=== PATIENT | female | born 1995 | race Caucasian/White ===

== ENCOUNTER 2017-04-15 22:01 | Emergency (ER) | payer OTHER ==
[~2017-04-15] VITALS: Ht 162.6 cm; Wt 59.0 kg
[~2017-04-15 22:01] MED LIST: ADDERALL20 MG PO; HYDROCODON-ACE1 EAC7 PO; KEFLEX500 MG PO; LEXAPRO10 MG PO; NORCO 5/3251 TABLET PO; TORADOL10 MG PO; VENTOLIN HFA18 GM IH
[2017-04-15 22:50] LABS: CHLORIDE 104 mEq/L (99-109); POTASSIUM 3.6 mEq/L (3.7-5.4); SODIUM 142 mEq/L (136-147)
[2017-04-15 22:52] LABS: GLUCOSE 112 mg/dL (70-99)
[2017-04-15 22:54] LABS: ANION GAP 11 MEQ/L (2-14)
[2017-04-15 22:56] LABS: GFR ESTIMATE (CALCULATED) > 59 mL/min/
[2017-04-15 22:57] LABS: UREA NITROGEN (BUN) 11 mg/dL (9-23)
[2017-04-15 23:01] LABS: TROP-I INTERPRETATION NEGATIVE; TROPONIN-I < 0.01 ng/mL (0.0-0.30)
[2017-04-15 23:06] LABS: HEMATOCRIT 39.8 % (36.0-46.0); MCH 33.7 PG (29.0-34.0); MCHC 34.9 G/DL (30.0-36.0); MCV 96.4 FL (83-99); PLATELET COUNT 216 K/uL (156-360); RBC DIS.WIDTH-CV 11.2 % (11.8-14.6); RBC DIS.WIDTH-SD 39.7 % (39-53); RED BLOOD COUNT 4.13 M/uL (3.80-5.20); WHITE BLOOD COUNT 10.6 K/uL (4.1-10.2)
[2017-04-16 00:16] LABS: QUANTITATIVE HCG < 4.0 MIU/ML
[2017-04-16] MEDS ORDERED: ZOFRAN ODT8 MG PO (01:33)
[2017-04-16 01:41] VITALS: BP 153/84
== END 2017-04-16 01:42 | disposition home or self-care (01) ==
LOC: EME 22:01
DX: R11.2 Nausea with vomiting, unspecified (principal); R07.9 Chest pain, unspecified
CPT/HCPCS: 71020; 76856; 80048; 84484; 84702; 85027; 93005; 99281; 99284; Q0169

== ENCOUNTER 2017-05-10 11:31 | Emergency (ER) | payer OTHER ==
[~2017-05-10] VITALS: Ht 160 cm; Wt 63.2 kg
[~2017-05-10 11:31] MED LIST changes: +ZOFRAN ODT8 MG PO
[2017-05-10 12:38] LABS: ADD MIUA? YES; BILIRUBIN NEGATIVE; BLOOD NEGATIVE; COLOR YELLOW ((YELLOW)); GLUCOSE (STRIP) NEGATIVE; KETONES NEGATIVE; LEUKOCYTES NEGATIVE; NITRITE POSITIVE; PROTEIN (STRIP) NEGATIVE; SPECIFIC GRAVITY 1.003 (1.000-1.030); UROBILINOGEN 0.2 MG/DL (0.2-1.0)
[2017-05-10 12:40] LABS: INTERNAL CONTROL VALID? YES
[2017-05-10 12:55] LABS: BACTERIA RARE /HPF; EPITHELIAL CELLS RARE /HPF; MUCUS NONE SEEN /LPF; RED BLOOD CELLS 0-5 /HPF (0-5); UCUL ADDED? NO; WHITE BLOOD CELLS NONE SEEN /HPF (0-5)
[2017-05-10 13:56] LABS: HEMATOCRIT 43.1 % (36.0-46.0); MCH 33.3 PG (29.0-34.0); MCV 94.9 FL (83-99); MEAN PLAT.VOLUME 10.6 uM^3 (9.5-12.4); PLATELET COUNT 177 K/uL (156-360); RBC DIS.WIDTH-CV 11.1 % (11.8-14.6); RBC DIS.WIDTH-SD 38.9 % (39-53); RED BLOOD COUNT 4.54 M/uL (3.80-5.20); WHITE BLOOD COUNT 6.1 K/uL (4.1-10.2)
[2017-05-10 14:05] LABS: CHLORIDE 105 mEq/L (99-109); POTASSIUM 4.1 mEq/L (3.7-5.4); SODIUM 140 mEq/L (136-147)
[2017-05-10 14:08] LABS: GLUCOSE 84 mg/dL (70-99)
[2017-05-10 14:09] LABS: ANION GAP 13 MEQ/L (2-14); TOTAL BILIRUBIN 0.7 mg/dL (0.0-1.0)
[2017-05-10 14:11] LABS: ALKALINE PHOSPHATASE 60 IU/L (3-129); GFR ESTIMATE (CALCULATED) > 59 mL/min/
[2017-05-10 14:12] LABS: UREA NITROGEN (BUN) 7 mg/dL (9-23)
[2017-05-10 14:20] LABS: QUANTITATIVE HCG < 4.0 MIU/ML
[2017-05-10] MEDS ORDERED: ZOFRAN ODT4 MG PO (18:39)
[2017-05-10] MEDS ORDERED: TORADOL10 MG PO (18:39)
[2017-05-10 18:54] VITALS: BP 119/74
== END 2017-05-10 19:06 | disposition home or self-care (01) ==
LOC: EME 11:31
PROVIDERS: Nurse Practitioner Family
DX: N39.0 Urinary tract infection, site not specified (principal); F41.9 Anxiety disorder, unspecified; Z91.040 Latex allergy status; Z88.6 Allergy status to analgesic agent
CPT/HCPCS: 71020; 74177; 80053; 81003; 84702; 84703; 85027; 99281; 99284; J1885; J2405; J7030

== ENCOUNTER 2017-09-19 19:32 | Emergency (ER) | payer OTHER ==
[~2017-09-19] VITALS: Ht 162.6 cm; Wt 65.1 kg
[~2017-09-19 19:32] MED LIST changes: +ZOFRAN ODT4 MG PO
[2017-09-19 20:31] LABS: HEMATOCRIT 37.5 % (36.0-46.0); MCH 33.7 PG (29.0-34.0); MCHC 36.5 G/DL (30.0-36.0); MCV 92.4 FL (83-99); MEAN PLAT.VOLUME 10.5 uM^3 (9.5-12.4); PLATELET COUNT 197 K/uL (156-360); RBC DIS.WIDTH-CV 11.5 % (11.8-14.6); RED BLOOD COUNT 4.06 M/uL (3.80-5.20); WHITE BLOOD COUNT 10.1 K/uL (4.1-10.2)
[2017-09-19 20:44] LABS: CHLORIDE 105 mEq/L (99-109); POTASSIUM 3.6 mEq/L (3.7-5.4); SODIUM 137 mEq/L (136-147)
[2017-09-19 20:45] LABS: GLUCOSE 78 mg/dL (70-99)
[2017-09-19 20:47] LABS: ANION GAP 10 MEQ/L (2-14)
[2017-09-19 20:49] LABS: GFR ESTIMATE (CALCULATED) > 59 mL/min/
[2017-09-19 20:50] LABS: UREA NITROGEN (BUN) 8 mg/dL (9-23)
[2017-09-19 20:55] LABS: TROP-I INTERPRETATION NEGATIVE; TROPONIN-I < 0.01 ng/mL (0.0-0.30)
[2017-09-19 21:25] LABS: ADD MIUA? YES; BILIRUBIN NEGATIVE; BLOOD NEGATIVE; COLOR YELLOW ((YELLOW)); GLUCOSE (STRIP) NEGATIVE; KETONES 20; LEUKOCYTES NEGATIVE; NITRITE NEGATIVE; PROTEIN (STRIP) NEGATIVE; SPECIFIC GRAVITY 1.012 (1.000-1.030); UROBILINOGEN 0.2 MG/DL (0.2-1.0)
[2017-09-19 21:52] LABS: EPITHELIAL CELLS RARE /HPF; MUCUS NONE SEEN /LPF; RED BLOOD CELLS 0-5 /HPF (0-5); WHITE BLOOD CELLS 0-5 /HPF (0-5)
[2017-09-19 21:53] LABS: BACTERIA 1+ /HPF; CASTS NONE SEEN /LPF; CRYSTALS NONE SEEN
[2017-09-19] MEDS ORDERED: ANTIVERT25 MG PO (22:28)
[2017-09-19] MEDS ORDERED: KEFLEX500 MG PO (22:33)
[2017-09-19 23:00] VITALS: BP 139/82
== END 2017-09-19 23:00 | disposition home or self-care (01) ==
LOC: EME 19:32
PROVIDERS: Physician Assistant
DX: O99.412 Diseases of the circulatory system complicating pregnancy, second trimester (principal); R00.2 Palpitations; R42 Dizziness and giddiness; O23.42 Unspecified infection of urinary tract in pregnancy, second trimester; O99.282 Endocrine, nutritional and metabolic diseases complicating pregnancy, second trimester; E86.0 Dehydration; F32.9 Major depressive disorder, single episode, unspecified; F41.9 Anxiety disorder, unspecified; M08.00 Unspecified juvenile rheumatoid arthritis of unspecified site; Z3A.17 17 weeks gestation of pregnancy; Z91.040 Latex allergy status; Z88.5 Allergy status to narcotic agent; Z88.6 Allergy status to analgesic agent; Z88.8 Allergy status to other drugs, medicaments and biological substances
CPT/HCPCS: 80048; 81003; 84443; 84484; 85027; 87086; 93005; 93970; 99281; 99284

== ENCOUNTER 2017-11-06 17:25 | Outpatient (CLI) | payer OTHER ==
[~2017-11-06] VITALS: Ht 160 cm; Wt 69.5 kg
[~2017-11-06 17:25] MED LIST changes: +ANTIVERT25 MG PO
[2017-11-06 17:40] VITALS: BP 123/79
[2017-11-06] MEDS ORDERED: ZOLOFT50 MG PO (17:51)
[2017-11-06] MEDS ORDERED: EXPECTA PRENAT1 EACH PO (17:51)
[2017-11-06 20:41] VITALS: BP 131/75
[2017-11-06 21:35] VITALS: BP 131/74
== END 2017-11-06 21:45 | disposition home or self-care (01) ==
LOC: LDRP-OP 17:25 → 2WEST 17:26
DX: O99.89 Other specified diseases and conditions complicating pregnancy, childbirth and the puerperium (principal); R10.9 Unspecified abdominal pain; V89.2XXA Person injured in unspecified motor-vehicle accident, traffic, initial encounter; Z3A.24 24 weeks gestation of pregnancy
CPT/HCPCS: 59025; G0378

== ENCOUNTER 2018-01-09 11:11 | Outpatient (CLI) | payer OTHER ==
[~2018-01-09 11:11] MED LIST changes: +EXPECTA PRENAT1 EACH PO; +ZOLOFT50 MG PO
[2018-01-09 11:56] VITALS: BP 118/64
[2018-01-09 16:16] LABS: CANDIDA DNA PROBE NEGATIVE; GARDNERELLA DNA PROBE NEGATIVE; TRICHOMONAS DNA PROBE NEGATIVE
[2018-01-10 12:43] LABS: SOURCE SWAB
== END 2018-01-09 13:58 | disposition home or self-care (01) ==
LOC: LDRP-OP 11:11 → 2WEST 11:12 → LDRP-OP 03-29 23:56
PROVIDERS: Obstetrics & Gynecology
DX: O26.853 Spotting complicating pregnancy, third trimester (principal); N89.8 Other specified noninflammatory disorders of vagina; Z3A.33 33 weeks gestation of pregnancy
CPT/HCPCS: 59025; 76805; 87480; 87491; 87510; 87591; 87660; G0378

== ENCOUNTER 2018-01-21 16:55 | Outpatient (CLI) | payer OTHER ==
[~2018-01-21] VITALS: Ht 162.6 cm; Wt 81.0 kg
[2018-01-21 17:39] VITALS: BP 129/88
[2018-01-21 18:11] VITALS: BP 126/85
[2018-01-21 18:31] LABS: BASOPHIL (%) 0.2 % (0-1); EOSINOPHIL (%) 1.2 % (0-5); EOSINOPHIL COUNT 0.1 K/uL (0-0.3); HEMATOCRIT 35.6 % (36.0-46.0); IMMATURE GRANULOCYTE (%) 0.4 % (0.0-0.7); LYMPHOCYTE (%) 14.9 % (15-42); LYMPHOCYTE COUNT 1.7 K/uL (1.0-2.8); MCHC 33.7 G/DL (30.0-36.0); MCV 94.9 FL (83-99); MONOCYTE (%) 7.4 % (3-12); MONOCYTE COUNT 0.8 K/uL (0-0.8); NEUTROPHIL (%) 75.9 % (45-76); NEUTROPHIL COUNT 8.6 K/uL (1.8-6.4); PLATELET COUNT 157 K/uL (156-360); RBC DIS.WIDTH-CV 11.7 % (11.8-14.6); RBC DIS.WIDTH-SD 39.9 % (39-53); RED BLOOD COUNT 3.75 M/uL (3.80-5.20); WHITE BLOOD COUNT 11.4 K/uL (4.1-10.2)
[2018-01-21 18:46] LABS: ALBUMIN 3.3 G/DL (3.2-4.8); ALKALINE PHOSPHATASE 93 IU/L (3-129); ALT (GPT) 20 IU/L (3-49); AST (GOT) 18 IU/L (2-34); CHLORIDE 103 MEQ/L (99-109); CREATININE 0.6 MG/DL (0.6-1.3); GFR ESTIMATE (CALCULATED) > 59 mL/min/; GLUCOSE 91 mg/dL (70-99); POTASSIUM 3.5 MEQ/L (3.7-5.4); SODIUM 134 MEQ/L (136-147); TOTAL BILIRUBIN 0.3 MG/DL (0.0-1.0); TOTAL PROTEIN 5.6 G/DL (6.4-8.3); UREA NITROGEN (BUN) 10 mg/dL (9-23)
[2018-01-22 03:25] LABS: UR CREATININE CONCENTRATION 39.4 MG/DL
== END 2018-01-21 20:24 | disposition home or self-care (01) ==
LOC: LDRP-OP 16:55 → 2WEST 16:56 → LDRP-OP 03-29 14:03
PROVIDERS: Midwife
DX: O26.893 Other specified pregnancy related conditions, third trimester (principal); R03.0 Elevated blood-pressure reading, without diagnosis of hypertension; O99.343 Other mental disorders complicating pregnancy, third trimester; F41.9 Anxiety disorder, unspecified; Z3A.34 34 weeks gestation of pregnancy
CPT/HCPCS: 59025; 80053; 82570; 84156; 85025; G0378

== ENCOUNTER 2018-02-20 17:14 | Inpatient (IN) | payer OTHER ==
[2018-02-20] VITALS (8 sets, daily range): BP systolic 126–147; BP diastolic 74–87
[~2018-02-20] VITALS: Ht 160 cm; Wt 87.5 kg
[2018-02-20] MEDS ORDERED: ZANTAC150 MG PO (18:02)
[2018-02-20 19:13] LABS: BASOPHIL (%) 0.2 % (0-1); EOSINOPHIL (%) 1.2 % (0-5); EOSINOPHIL COUNT 0.2 K/uL (0-0.3); HEMATOCRIT 34.8 % (36.0-46.0); HEMOGLOBIN 11.7 G/DL (11.9-15.5); IMMATURE GRANULOCYTE (%) 0.4 % (0.0-0.7); LYMPHOCYTE (%) 16.1 % (15-42); LYMPHOCYTE COUNT 2.1 K/uL (1.0-2.8); MCH 31.6 PG (29.0-34.0); MCHC 33.6 G/DL (30.0-36.0); MCV 94.1 FL (83-99); MONOCYTE (%) 6.6 % (3-12); MONOCYTE COUNT 0.8 K/uL (0-0.8); NEUTROPHIL (%) 75.5 % (45-76); NEUTROPHIL COUNT 9.6 K/uL (1.8-6.4); PLATELET COUNT 125 K/uL (156-360); RBC DIS.WIDTH-CV 12.3 % (11.8-14.6); RBC DIS.WIDTH-SD 41.9 % (39-53); WHITE BLOOD COUNT 12.7 K/uL (4.1-10.2)
[2018-02-20 19:41] LABS: AMPHETAMINE NEGATIVE (500 ng/mL); BARBITURATES NEGATIVE (200 ng/mL); BENZODIAZEPINES NEGATIVE (150 ng/mL); BUPRENORPHINE NEGATIVE (10 ng/mL); COCAINE NEGATIVE (150 ng/mL); METHADONE NEGATIVE (200 ng/mL); METHAMPHETAMINE NEGATIVE (500 ng/mL); OPIATES (MORPHINE) NEGATIVE (100 ng/mL); OXYCODONE NEGATIVE (100 ng/mL); PHENCYCLIDINE NEGATIVE (25 ng/mL); PROPOXYPHENE NEGATIVE (300 ng/mL); THC CANNABINOIDS NEGATIVE (50 ng/mL); TRICYCLIC ANTIDEPRESSANTS NEGATIVE (300 ng/mL)
[2018-02-21] VITALS (27 sets, daily range): BP systolic 108–144; BP diastolic 59–87
[2018-02-22] VITALS (16 sets, daily range): BP systolic 106–145; BP diastolic 58–99
[2018-02-22] MEDS ORDERED: MOTRIN800 MG PO (20:34)
[2018-02-22] MEDS ORDERED: PERCOCET 5/31 TABLET PO (20:34)
[2018-02-23] VITALS (8 sets, daily range): BP systolic 119–146; BP diastolic 70–87
[2018-02-23 06:05] LABS: BASOPHIL (%) 0.2 % (0-1); EOSINOPHIL (%) 0.6 % (0-5); EOSINOPHIL COUNT 0.1 K/uL (0-0.3); HEMATOCRIT 27.9 % (36.0-46.0); IMMATURE GRANULOCYTE (%) 0.3 % (0.0-0.7); LYMPHOCYTE (%) 14.9 % (15-42); LYMPHOCYTE COUNT 1.9 K/uL (1.0-2.8); MCH 31.4 PG (29.0-34.0); MCHC 33.7 G/DL (30.0-36.0); MCV 93.3 FL (83-99); MONOCYTE (%) 5.9 % (3-12); MONOCYTE COUNT 0.7 K/uL (0-0.8); NEUTROPHIL (%) 78.1 % (45-76); NEUTROPHIL COUNT 9.9 K/uL (1.8-6.4); PLATELET COUNT 108 K/uL (156-360); RBC DIS.WIDTH-CV 12.4 % (11.8-14.6); RBC DIS.WIDTH-SD 41.9 % (39-53); RED BLOOD COUNT 2.99 M/uL (3.80-5.20); WHITE BLOOD COUNT 12.6 K/uL (4.1-10.2)
[2018-02-23 06:08] LABS: HEMOGLOBIN 9.4 G/DL (11.9-15.5)
[2018-02-24 03:16] VITALS: BP 125/78
[2018-02-24 07:53] VITALS: BP 131/81
[2018-02-24 11:22] VITALS: BP 132/85
[2018-02-24 15:26] VITALS: BP 132/81
[2018-02-24 20:36] VITALS: BP 160/93
[2018-02-24 21:27] VITALS: BP 158/94
[2018-02-25] VITALS (7 sets, daily range): BP systolic 122–163; BP diastolic 72–98
[2018-02-26] VITALS (13 sets, daily range): BP systolic 132–160; BP diastolic 78–95
[2018-02-26 12:25] LABS: BASOPHIL (%) 0.1 % (0-1); EOSINOPHIL COUNT 0.2 K/uL (0-0.3); HEMATOCRIT 28.5 % (36.0-46.0); HEMOGLOBIN 9.4 G/DL (11.9-15.5); IMMATURE GRANULOCYTE (%) 0.4 % (0.0-0.7); LYMPHOCYTE (%) 24.8 % (15-42); LYMPHOCYTE COUNT 1.8 K/uL (1.0-2.8); MCH 31.2 PG (29.0-34.0); MCV 94.7 FL (83-99); MONOCYTE (%) 5.3 % (3-12); MONOCYTE COUNT 0.4 K/uL (0-0.8); NEUTROPHIL (%) 66.4 % (45-76); NEUTROPHIL COUNT 4.9 K/uL (1.8-6.4); RBC DIS.WIDTH-CV 12.8 % (11.8-14.6); RED BLOOD COUNT 3.01 M/uL (3.80-5.20); WHITE BLOOD COUNT 7.4 K/uL (4.1-10.2)
[2018-02-26 12:32] LABS: PLATELET COUNT 182 K/uL (156-360)
[2018-02-26 12:47] LABS: ALBUMIN 2.9 G/DL (3.2-4.8); ALKALINE PHOSPHATASE 96 IU/L (3-129); ALT (GPT) 82 IU/L (3-49); AST (GOT) 84 IU/L (2-34); CHLORIDE 102 MEQ/L (99-109); CREATININE 0.7 MG/DL (0.6-1.3); GFR ESTIMATE (CALCULATED) > 59 mL/min/; GLUCOSE 76 mg/dL (70-99); POTASSIUM 4.6 MEQ/L (3.7-5.4); SODIUM 136 MEQ/L (136-147); TOTAL BILIRUBIN 0.3 MG/DL (0.0-1.0); TOTAL PROTEIN 5.2 G/DL (6.4-8.3); UREA NITROGEN (BUN) 8 mg/dL (9-23)
[2018-02-26 14:00] LABS: UR CREATININE CONCENTRATION 24.6 MG/DL
[2018-02-27] VITALS (16 sets, daily range): BP systolic 108–151; BP diastolic 58–92
[2018-02-27 05:29] LABS: BASOPHIL (%) 0.3 % (0-1); EOSINOPHIL (%) 4.2 % (0-5); EOSINOPHIL COUNT 0.3 K/uL (0-0.3); HEMATOCRIT 28.6 % (36.0-46.0); HEMOGLOBIN 9.7 G/DL (11.9-15.5); IMMATURE GRANULOCYTE (%) 0.3 % (0.0-0.7); LYMPHOCYTE (%) 31.6 % (15-42); MCH 32.2 PG (29.0-34.0); MCHC 33.9 G/DL (30.0-36.0); MONOCYTE (%) 6.6 % (3-12); MONOCYTE COUNT 0.4 K/uL (0-0.8); NEUTROPHIL COUNT 3.5 K/uL (1.8-6.4); PLATELET COUNT 204 K/uL (156-360); RBC DIS.WIDTH-CV 12.8 % (11.8-14.6); RBC DIS.WIDTH-SD 43.8 % (39-53); RED BLOOD COUNT 3.01 M/uL (3.80-5.20); WHITE BLOOD COUNT 6.2 K/uL (4.1-10.2)
[2018-02-27 05:47] LABS: ALBUMIN 3.1 g/dL (3.2-4.8); CHLORIDE 100 mEq/L (99-109); POTASSIUM 3.9 mEq/L (3.7-5.4); SODIUM 137 mEq/L (136-147)
[2018-02-27 05:49] LABS: GLUCOSE 85 mg/dL (70-99); TOTAL PROTEIN 5.1 g/dL (6.4-8.3)
[2018-02-27 05:51] LABS: TOTAL BILIRUBIN 0.3 mg/dL (0.0-1.0)
[2018-02-27 05:53] LABS: ALKALINE PHOSPHATASE 104 IU/L (3-129); CREATININE 0.7 mg/dL (0.6-1.3); GFR ESTIMATE (CALCULATED) > 59 mL/min/
[2018-02-27 05:54] LABS: UREA NITROGEN (BUN) 9 mg/dL (9-23)
[2018-02-27 05:55] LABS: AST (GOT) 60 IU/L (2-34)
[2018-02-27 05:56] LABS: ALT (GPT) 81 IU/L (3-49)
[2018-02-28 02:47] VITALS: BP 144/94
[2018-02-28 05:38] LABS: BASOPHIL (%) 0.3 % (0-1); EOSINOPHIL (%) 3.7 % (0-5); EOSINOPHIL COUNT 0.3 K/uL (0-0.3); HEMATOCRIT 28.4 % (36.0-46.0); HEMOGLOBIN 9.5 G/DL (11.9-15.5); IMMATURE GRANULOCYTE (%) 0.5 % (0.0-0.7); LYMPHOCYTE (%) 28.5 % (15-42); LYMPHOCYTE COUNT 2.1 K/uL (1.0-2.8); MCH 31.8 PG (29.0-34.0); MCHC 33.5 G/DL (30.0-36.0); MONOCYTE (%) 6.1 % (3-12); MONOCYTE COUNT 0.5 K/uL (0-0.8); NEUTROPHIL (%) 60.9 % (45-76); NEUTROPHIL COUNT 4.5 K/uL (1.8-6.4); PLATELET COUNT 228 K/uL (156-360); RBC DIS.WIDTH-CV 12.7 % (11.8-14.6); RBC DIS.WIDTH-SD 43.8 % (39-53); RED BLOOD COUNT 2.99 M/uL (3.80-5.20); WHITE BLOOD COUNT 7.4 K/uL (4.1-10.2)
[2018-02-28 06:02] LABS: ALBUMIN 2.8 G/DL (3.2-4.8); ALKALINE PHOSPHATASE 85 IU/L (3-129); ALT (GPT) 55 IU/L (3-49); CHLORIDE 100 MEQ/L (99-109); CREATININE 0.8 MG/DL (0.6-1.3); GFR ESTIMATE (CALCULATED) > 59 mL/min/; GLUCOSE 79 mg/dL (70-99); POTASSIUM 4.2 MEQ/L (3.7-5.4); SODIUM 133 MEQ/L (136-147); TOTAL BILIRUBIN 0.3 MG/DL (0.0-1.0); UREA NITROGEN (BUN) 9 mg/dL (9-23)
[2018-02-28 06:03] LABS: AST (GOT) 35 IU/L (2-34)
[2018-02-28 07:29] VITALS: BP 145/92
[2018-02-28 09:30] VITALS: BP 135/71
[2018-02-28] MEDS ORDERED: NORMODYNE,TRAN300 MG PO (09:42)
[2018-02-28] MEDS ORDERED: NORMODYNE,TRAN200 MG PO (09:42)
== END 2018-02-28 12:15 | disposition home or self-care (01) | DRG 765 ==
LOC: LDRP-OP → 2WEST 17:16 → LDRP-OP 21:56 → 2WEST 02-22 16:41 → LDRP-OP 03-29 20:40
PROVIDERS: Midwife; Obstetrics & Gynecology
PROC: 3E0P7GC Introduction of Other Therapeutic Substance into Female Reproductive, Via Natural or Artificial Opening (ICD-10-PCS; principal; 2018-02-20)
PROC: 10D00Z1 Extraction of Products of Conception, Low, Open Approach (ICD-10-PCS; 2018-02-22)
PROC: 00HU33Z Insertion of Infusion Device into Spinal Canal, Percutaneous Approach (ICD-10-PCS; 2018-02-22)
PROC: 3E0R3BZ Introduction of Anesthetic Agent into Spinal Canal, Percutaneous Approach (ICD-10-PCS; 2018-02-22)
DX: O82 Encounter for cesarean delivery without indication (principal); O36.5930 Maternal care for other known or suspected poor fetal growth, third trimester, not applicable or unspecified; O14.15 Severe pre-eclampsia, complicating the puerperium; O99.02 Anemia complicating childbirth; D62 Acute posthemorrhagic anemia; O13.4 Gestational [pregnancy-induced] hypertension without significant proteinuria, complicating childbirth; O99.344 Other mental disorders complicating childbirth; F41.9 Anxiety disorder, unspecified; Z3A.39 39 weeks gestation of pregnancy; Z37.0 Single live birth
CPT/HCPCS: 80053; 82570; 83735; 84156; 85025; G0378; J0690; J2060; J2250; J2274; J2370; J2405; J2590; J3010; J3475; J7120